=== PATIENT | male | born 1995 | race Caucasian/White ===

== ENCOUNTER 2018-02-12 03:17 | Emergency (ER) | payer BC ==
[~2018-02-12] VITALS: Ht 180.3 cm; Wt 77.3 kg
[~2018-02-12 03:17] MED LIST: DOXYCYCLINE 10100 MG PO
[2018-02-12 03:22] VITALS: TEMP 97.3
[2018-02-12 04:31] VITALS: BP 135/70; PULSE 87
== END 2018-02-12 04:32 | disposition home or self-care (01) ==
LOC: COL.ER 03:17
DX: R41.0 Disorientation, unspecified (principal); T62.0X1A Toxic effect of ingested mushrooms, accidental (unintentional), initial encounter